=== PATIENT | female | born 1985 | race African-American/Black ===

== ENCOUNTER 2019-01-07 04:01 | Emergency (ER) | payer OTHER ==
[~2019-01-07] VITALS: Ht 154.9 cm; Wt 69.0 kg
[~2019-01-07 04:01] MED LIST: PREN1TAB79 PO
[2019-01-07 04:10] VITALS: BP 122/68; PULSE 81; RESP 18; Ht 154.9 cm; Wt 69.0 kg
--- NOTE | 2019-01-07 04:19 | ERD ---
ER Documentation Chief Complaint Chief Complaint L SIDE DENTAL PAIN X'S 2 WEEKS HPI This is a 33-year-old female who presents to the emergency room for evaluation of tooth pain. The patient states that she had a tooth pain for the past 2 weeks. She states that she has been given prescriptions for Motrin, Irwin, and antibiotic. She states that she does get some relief with Motrin however today her pain is extremely bad and she came to the ER for evaluation. She describes as a sharp pain on the left lower and posterior teeth. She states chewing makes it worse and hot and cold also makes it worse. ROS All systems reviewed and are negative except as per history of present illness. Medications Home Meds Active Scripts Ibuprofen* (Motrin*) 800 Mg Tab, 800 MG PO Q6H PRN for PAIN AND OR ELEVATED TEMP, #30 TAB Prov:JENNIFER PHILLIPS 01/07/19 Reported Medications Vit W-Ca,Fe,FA(<1 mg) ( Vitamins) 1 Each Tablet, 1 EACH PO DAILY for 7 Days, TAB 07/11/16 Allergies Allergies: Coded Allergies: No Known Allergy (Unverified , 07/11/16) PMhx/Soc Medical and Surgical Hx: pt denies Medical Hx History of Surgery: Yes ( X4) Hx Alcohol Use: Yes (OCCASIONAL) Hx Substance Use: No Hx Tobacco Use: No Smoking Status: Never smoker Physical Exam Vitals Vital Signs Date Temp Pulse Resp B/P (MAP) Pulse Ox O2 O2 Flow FiO2 Time Delivery Rate 01/07/19 98.1 81 18 122/68 99 04:10 (86) Physical Exam Const: No acute distress Head: Atraumatic Eyes: Normal Conjunctiva ENT: Poor dentition with a dental caries noted on #17, tooth 18, no signs of periapical abscess, normal External Ears, Nose and Mouth. Neck: Full range of motion. No meningismus. Resp: Clear to auscultation bilaterally Cardio: Regular rate and rhythm, no murmurs Abd: Soft, non tender, non distended. Normal bowel sounds Skin: No petechiae or rashes Back: No midline or flank tenderness Ext: No cyanosis, or edema Neur: Awake and alert Psych: Normal Mood and Affect Results 24 hrs Current Medications Medications Dose Sig/Jay Start Time Status Last (Trade) Ordered Route PRN Stop Time Admin Dose Reason Admin Lidocaine 20 ml ONCE ONCE 01/07/19 (Xylocaine SC 04:30 01/07/19 1% (Mdv) 20 04:31 ml) Ibuprofen 800 mg ONCE ONCE 01/07/19 (Motrin) PO 04:30 01/07/19 04:31 Procedures/MDM My nerve block note: Location : Left inferior alveolar nerve block Medication: Lidocaine 1% approximately 1.5 cc Result: Achievement of anesthesia with no complication This 33-year-old female presents to the ER for evaluation of dental pain. On my evaluation the patient does have dental caries at 217 and 18. She has been taking Motrin, Irwin, and oral antibiotics with only minimal relief. The patient was offered a nerve block and did agree. I did perform an inferior alveolar nerve block and was able to achieve anesthesia. The patient is now resting comfortably in no acute distress. She was given Motrin and will be discharged home with prescription for Motrin, and referral for outpatient dentistry Departure Diagnosis: Primary Impression: Tooth disease Additional Impressions: Toothache Tooth loss Condition: Fair JENNIFER PHILLIPS DO Jan 07, 2019 04:19
[2019-01-07] MEDS ORDERED: IBUP800T48 PO (04:26)
[2019-01-07] MEDS ORDERED: IBUPROFEN 800 MG TAB PO ONE (04:30)
[2019-01-07] MEDS ORDERED: LIDOCAINE 1% (MDV) 20 ML INJ SC ONE (04:30)
== END 2019-01-07 04:35 | disposition home or self-care (01) ==
LOC: E/R 04:01
DX: K08.9 Disorder of teeth and supporting structures, unspecified (principal)
CPT/HCPCS: 64400; Z7502; Z7610